=== PATIENT | male | born 1950 | race Caucasian/White ===

== ENCOUNTER 2021-10-13 00:19 | Day surgery (SDC) | payer MEDICARE, SELFPAY ==
[2021-09-08 10:57] VITALS: BMI 37.3
[2021-09-26 14:00] VITALS: BMI 37.3
--- NOTE | 2021-10-12 14:11 | WPDANESEPPF ---
Anes - Initial Pre Proc Eval Procedure: Operation Date: 10/13/21 09:30 Proposed Procedures p Screening Colonoscopy - Albert Hollins MD Date/Time: 10/12/21 14:11 Surgeon: Albert Hollins MD Pre Op Diagnosis: neoplasm screening Patient Data Age: 71 Gender: M Height: 1.91 m Weight: 135.4 kg Allergies Allergy/AdvReac Type Severity Reaction Status Date / Time No Known Allergies Allergy Verified 10/13/21 08:12 Home Medications Medication Instructions Recorded Confirmed Type allopurinol 300 mg tablet 300 mg PO DAILY 09/08/21 10/13/21 History dulaglutide 0.75 mg/0.5 mL 0 mg subcut WEEKLY 09/08/21 10/13/21 History subcutaneous pen injector (Trulicity) glimepiride 4 mg tablet 4 mg PO DAILY 09/08/21 10/13/21 History glipizide 10 mg tablet 10 mg PO DAILY 09/08/21 10/13/21 History insulin lispro 200 unit/mL (3 mL) 10 - 12 unit subcut BID 09/08/21 10/13/21 History subcutaneous pen (Humalog KwikPen U-200 Insulin) levothyroxine 50 mcg tablet 50 mcg PO DAILY 09/08/21 10/13/21 History lisinopril 40 mg tablet 40 mg PO DAILY 09/08/21 10/13/21 History metformin 500 mg tablet,extended 500 mg PO DAILY 09/08/21 10/13/21 History release 24 hr pravastatin 40 mg tablet 40 mg PO DAILY 09/08/21 10/13/21 History Patient hx anesthesia problems: none Family hx anesthesia problems: none Results Review: All pre-operative results and documents have been reviewed as part of the pre-operative evaluation. [facility] Past Medical History Medical History Diabetes type 2, controlled Gout Hyperlipidemia Hypertension Hypothyroidism Surgical History Surgical History History of cholecystectomy Social History Social History Smoking status: Former smoker Tobacco type: cigars Alcohol intake: never Substance use: never Substance use type: does not use Living arrangements: with family Spiritual care concerns: No Anes - Eval Final PreProcedure Day of Procedure 10/12/21 14:11 Patient weight: obese Heart: regular rate and rhythm Lungs: clear to auscultation Airway: Mallampati scale class II Neurological: alert and oriented Last oral intake: >/= 8 hours ASA classification: III Emergent: no Anesthetic plan: proceed Anesthesia type and monitoring: general GIVS and standard monitoring Results Review: All pre-operative results and documents have been reviewed as part of the pre-operative evaluation. Informed Consent: The patient's anesthetic plan and its attendant risks and benefits were discussed with the patient/family/POA. Questions were solicited and answers provided to the satisfaction of the patient/family/POA.
--- NOTE | 2021-10-13 06:41 | PM.HPGS ---
History of Present Illness History of Present Illness Consent: Risks, benefits, and alternatives have been discussed and questions answered. Patient agrees to proceed with procedure. Chief complaint: neoplasm screening Narrative: Oswaldo Zafar is a 71 year old male referred for colon cancer screening. His last colonoscopy was 10 years ago. Review of Systems Review of Systems: All systems reviewed & are unremarkable except as noted in HPI and below PMFSH Past Medical History Medical History Diabetes type 2, controlled Gout Hyperlipidemia Hypertension Hypothyroidism Surgical History Surgical History History of cholecystectomy Social History Social History Smoking status: Former smoker Tobacco type: cigars Alcohol intake: never Substance use: never Substance use type: does not use Living arrangements: with family Spiritual care concerns: No Meds Home Medications and Allergies Home Medications Medication Instructions Recorded Confirmed Type allopurinol 300 mg tablet 300 mg PO DAILY 09/08/21 10/13/21 History dulaglutide 0.75 mg/0.5 mL 0 mg subcut WEEKLY 09/08/21 10/13/21 History subcutaneous pen injector (Trulicity) glimepiride 4 mg tablet 4 mg PO DAILY 09/08/21 10/13/21 History glipizide 10 mg tablet 10 mg PO DAILY 09/08/21 10/13/21 History insulin lispro 200 unit/mL (3 mL) 10 - 12 unit subcut BID 09/08/21 10/13/21 History subcutaneous pen (Humalog KwikPen U-200 Insulin) levothyroxine 50 mcg tablet 50 mcg PO DAILY 09/08/21 10/13/21 History lisinopril 40 mg tablet 40 mg PO DAILY 09/08/21 10/13/21 History metformin 500 mg tablet,extended 500 mg PO DAILY 09/08/21 10/13/21 History release 24 hr pravastatin 40 mg tablet 40 mg PO DAILY 09/08/21 10/13/21 History Allergies Allergy/AdvReac Type Severity Reaction Status Date / Time No Known Allergies Allergy Verified 10/13/21 08:12 Exam Resp: Auscultation: clear to auscultation bilaterally Cardio: Rate: regular rate Rhythm: regular rhythm GI: GI Palp: Yes Soft to palpation and No Tenderness to palpation present (GI) Assessment and Plan Assessment and plan (1) Colon cancer screening: Code(s): Z12.11 - Encounter for screening for malignant neoplasm of colon Status: Acute Assessment and Plan: Colonoscopy with possible biopsy or polypectomy or cautery or injection of substances.
[2021-10-13 08:13] VITALS: BP 122/73; PULSE 89; RESP 18; TEMP 36.3; O2SAT 99
[2021-10-13] MEDS: LACTATED RINGERS 1,000 ML 150 ML IV CONT (08:25)
[2021-10-13 08:27] LABS: Glucose Point of Care 146 mg/dl (65-105)
[2021-10-13 09:48] VITALS: BP 86/50; PULSE 87; RESP 25; O2SAT 93
[2021-10-13 09:58] VITALS: BP 89/53; PULSE 86; RESP 19; O2SAT 92
[2021-10-13 10:08] VITALS: BP 102/63; PULSE 82; RESP 15; O2SAT 98
[2021-10-13 10:08] LABS: Glucose Point of Care 135 mg/dl (65-105)
== END 2021-10-13 10:19 | disposition home or self-care (01) ==
PROVIDERS: PCP Internal Medicine; Visit Provider Internal Medicine Gastroenterology
PROC: 0DJD8ZZ Inspection of Lower Intestinal Tract, Via Natural or Artificial Opening Endoscopic (ICD-10-PCS; CPT 45378; principal; 2021-10-13 09:30)
DX: Z12.11 Encounter for screening for malignant neoplasm of colon (principal); K63.5 Polyp of colon; E11.9 Type 2 diabetes mellitus without complications; E78.5 Hyperlipidemia, unspecified; I10 Essential (primary) hypertension; E03.9 Hypothyroidism, unspecified; Z87.891 Personal history of nicotine dependence; Z79.84 Long term (current) use of oral hypoglycemic drugs; Z79.4 Long term (current) use of insulin; Z90.49 Acquired absence of other specified parts of digestive tract; M10.9 Gout, unspecified; E66.9 Obesity, unspecified; Z68.36 Body mass index [BMI] 36.0-36.9, adult
CPT/HCPCS: 45380; 82948; 88305; J2704; J7120

== ENCOUNTER 2024-01-23 23:58 | Emergency (ER) | payer MEDICARE, SELFPAY ==
--- NOTE | ~2024-01-23 | CT_ITS ---
CT of the Abdomen and Pelvis: Indication: Abdominal pain Technique: 2.5 mm axial scans were obtained through the abdomen and pelvis following intravenous adm inistration of 100 cc of Omnipaque 350. Dose reduction technique was used on this scan by utilizing a utomated exposure control and iterative reconstruction technique. The dose-length product (DLP) was 1 698.48 mGy-cm. Findings: Scans through the lung bases are unremarkable. The liver, spleen, pancreas, adrenals and kidneys are within normal limits. Cholecystectomy clips not ed.. There are mild atherosclerotic calcifications of the aorta. No lymphadenopathy. There is wall thickening with adjacent pericolic inflammatory change at the proximal sigmoid colon, c ompatible diverticulum, most compatible with acute diverticulitis. No abscess or free air. No bowel o bstruction. Duodenal diverticulum noted. Images through the pelvis were performed. Small urinary bladder diverticula present, most notably at the right side. Prostate gland mildly enlarged. Small fat-containing left inguinal hernia present. No ascites. Impression: Acute diverticulitis, as detailed above. No abscess or free air. Small fat-containing left inguinal hernia. Additional chronic findings, as above. Reviewed, dictated and finalized at location M. Impression: Acute diverticulitis, as detailed above. No abscess or free air. Small fat-containing left inguinal hernia. Additional chronic findings, as above.
[2024-01-24 00:01] VITALS: BP 132/62; PULSE 90; RESP 15; TEMP 36.2; O2SAT 100
[2024-01-24 00:15] LABS: Basophils Absolute Auto 0.1 K/mm3 (0.0-0.1); Basophils Percent Auto 0.6 % (0.2-1.2); Eosinophils Absolute Auto 0.2 K/mm3 (0-0.3); Eosinophils Percent Auto 2.7 % (0-4.4); Hemoglobin 14.7 g/dL (14.0-18.0); Immature Granulocyte Absolute 0.02 K/mm3 (0.00-0.031); Immature Granulocyte Percent A 0.3 % (0-0.5); Lymphocytes Absolute Auto 1.29 K/mm3 (0.9-3.2); Lymphocytes Percent Auto 16.7 % (18.3-44.2); Mean Corpuscular HGB Conc 34.2 g/dl (32-36); Mean Corpuscular Hemoglobin 30.8 pg (26-34); Mean Platelet Volume 11.1 fl (7.4-10.4); Monocytes Absolute Auto 0.6 K/mm3 (0.1-0.6); Monocytes Percent Auto 8.2 % (2.6-8.5); Neutrophils Absolute Auto 5.5 K/mm3 (1.3-6.7); Neutrophils Percent Auto 71.5 % (45.5-73.1); Platelet Count Result 176 k/mm3 (150-375); Red Blood Count 4.78 M/mm3 (4.6-6.20); Red Cell Distribution Width 14.8 % (11.5-14.5); White Blood Count 7.7 K/mm3 (4.5-10.0)
[2024-01-24 00:24] LABS: Alanine Aminotransferase 16 U/L (6-50); Albumin Level 4.3 g/dL (3.5-5.1); Alkaline Phosphatase 64 U/L (38-126); Anion Gap 10 mmol/L (4-12); Aspartate Amino Transferase 23 U/L (17-59); Bilirubin,Total 0.5 mg/dL (0.2-1.3); Blood Urea Nitrogen 16 mg/dL (9-20); Calcium 9.4 mg/dL (8.4-10.2); Carbon Dioxide 22 mmol/L (22-30); Chloride 103 mmol/L (98-107); Estimated CRCL calculation 122 ml/min; Estimated Glomerular Filt Rate > 60; Glucose 91 mg/dL (65-110); Lipase 41 U/L (23-300); Potassium 4.7 mmol/L (3.4-5.0); Sodium 135 mmol/L (137-145)
[2024-01-24 01:06] LABS: Add Urine Microscopic? NO; Appearance Urine Clear (Clear); Bilirubin Urine Negative (Negative); Blood Urine Negative (Negative); Color Urine Yellow (Yellow); Glucose Urine UA Negative (Negative); Ketones Urine Negative (Negative); Leukocyte Esterase Ur Negative LEU/UL (Negative); Nitrate Urine Negative (Negative); Protein Urine Negative (Negative); Specific Grav Ur 1.012 (1.001-1.035); pH Urine 5.5 (5.0-9.0)
[2024-01-24 01:08] VITALS: BP 126/72; PULSE 90; RESP 19; TEMP 37; O2SAT 95
--- NOTE | 2024-01-24 01:11 | ED.ABDPAIN ---
HPI - Abdominal Pain General Chief Complaint: Abdominal Pain <Melissa Julio PA-C - Last Filed: 01/24/24 02:54> Stated Complaint: abdomen pain <Melissa Julio PA-C - Last Filed: 01/24/24 02:54> Time Seen by Provider: 01/24/24 01:06 <Melissa Julio PA-C - Last Filed: 01/24/24 02:54> History of Present Illness HPI narrative: 73-year-old male with history of hyperlipidemia, hypertension, insulin-dependent type 2 diabetes, hypothyroidism presents to the ED with his at bedside for left lower quadrant abdominal pain that started at 5:00 p.m. yesterday. Patient states the pain is sharp in nature and constant. States it is better when he sits but cannot identify any aggravating factors. Last bowel of it was today and normal. States he has had some intermittent diarrhea but that is not abnormal for him. He reports a history of a umbilical hernia repair and cholecystectomy. Denies obstipation, nausea or vomiting, dysuria or hematuria, history of kidney stones, flank pain. Denies history of diverticulitis. <Melissa Julio PA-C - Last Filed: 01/24/24 02:54> Related Data Home Medications: Home Medications Medication Instructions Recorded Confirmed allopurinol 300 mg tablet 300 mg PO DAILY 09/08/21 10/13/21 dulaglutide 0.75 mg/0.5 mL 0 mg subcut WEEKLY 09/08/21 10/13/21 subcutaneous pen injector (Trulicity) glimepiride 4 mg tablet 4 mg PO DAILY 09/08/21 10/13/21 glipizide 10 mg tablet 10 mg PO DAILY 09/08/21 10/13/21 insulin lispro 200 unit/mL (3 mL) 10 - 12 unit subcut BID 09/08/21 10/13/21 subcutaneous pen (Humalog KwikPen U-200 Insulin) levothyroxine 50 mcg tablet 50 mcg PO DAILY 09/08/21 10/13/21 lisinopril 40 mg tablet 40 mg PO DAILY 09/08/21 10/13/21 metformin 500 mg tablet,extended 500 mg PO DAILY 09/08/21 10/13/21 release 24 hr pravastatin 40 mg tablet 40 mg PO DAILY 09/08/21 10/13/21 <Melissa Julio PA-C - Last Filed: 01/24/24 02:54> Allergies/Adverse Reactions: Allergies Allergy/AdvReac Type Severity Reaction Status Date / Time No Known Allergies Allergy Verified 10/13/21 08:12 <Melissa Julio PA-C - Last Filed: 01/24/24 02:54> Review of Systems Review of Systems: All systems reviewed & are unremarkable except as noted in HPI and below <Melissa Julio PA-C - Last Filed: 01/24/24 02:54> PMFSH Past Medical History Medical History: Medical History Diabetes type 2, controlled Gout Hyperlipidemia Hypertension Hypothyroidism <Melissa Julio PA-C - Last Filed: 01/24/24 02:54> Surgical History Surgical History: Surgical History History of cholecystectomy <Melissa Julio PA-C - Last Filed: 01/24/24 02:54> Social History Social History: Social History Smoking status: Former smoker Tobacco type: cigars Alcohol intake: never Substance use: never Substance use type: does not use Living arrangements: with family Spiritual care concerns: No <Melissa Julio PA-C - Last Filed: 01/24/24 02:54> Exam Narrative: GENERAL: Well-appearing, well-nourished, and in no acute distress. HEAD: Normocephalic, atraumatic. EYES: EOMI. ENT: Nares clear, no rhinorrhea or epistaxis. Mucous membranes moist. NECK: Supple. CHEST: Clear to auscultation. No respiratory distress. HEART: Regular rate and rhythm. No murmur heard. Normal peripheral pulses. ABDOMEN: Normoactive bowel sounds. Abdomen soft with tenderness in the suprapubic and left lower quadrant. No rebound, guarding or rigidity. No CVA tenderness. EXTREMITIES: Normal range of motion. No edema. SKIN: Warm, dry, no rash. NEURO: No focal deficits. 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
[2024-01-24 02:34] VITALS: BP 120/75; PULSE 85; RESP 16; TEMP 36.6; O2SAT 98
[2024-01-24] MEDS: MORPHINE SULFATE (*CRX) 4 MG/ML INJ IV PUSH (03:33)
[2024-01-24] MEDS: DEXTROSE 50% 25 GM/50 ML SYRINGE IV PUSH (04:02)
[2024-01-24] MEDS: SODIUM CHLORIDE 0.9% IV 1,000 ML 999 ML IV CONT (04:09)
[2024-01-24 04:10] VITALS: BP 78/55; PULSE 69; RESP 16; TEMP 36.4; O2SAT 92
--- NOTE | 2024-01-24 04:15 | PC.NURSE ---
Patient checked his blood glucose on his personal glucometer. Patient obtained a reading of 70. Notified EDP Dr[address] Parsons
[2024-01-24 04:23] LABS: Glucose Point of Care 123 mg/dl (65-105)
[2024-01-24 04:27] VITALS: BP 102/06; BP 102/60; PULSE 77; PULSE 78; RESP 16; TEMP 36.6; O2SAT 98
[2024-01-24 05:51] VITALS: BP 114/65; PULSE 73; RESP 15; TEMP 36.6; O2SAT 97
[2024-01-24] MEDS: ONDANSETRON INJ 4 MG/2 ML VIAL IV PUSH (05:59)
[2024-01-24] MEDS: CIPROFLOXACIN 500 MG TAB PO (06:00)
[2024-01-24] MEDS: metroNIDAZOLE 500 MG TABLET PO (06:00)
== END 2024-01-24 06:04 | disposition home or self-care (01) ==
PROVIDERS: Emergency Medicine; Emergency Provider Physician Assistant; PCP Internal Medicine
DX: K57.32 Diverticulitis of large intestine without perforation or abscess without bleeding (principal); I10 Essential (primary) hypertension; E78.5 Hyperlipidemia, unspecified; E11.9 Type 2 diabetes mellitus without complications; E03.9 Hypothyroidism, unspecified; M10.9 Gout, unspecified; Z87.891 Personal history of nicotine dependence; Z90.49 Acquired absence of other specified parts of digestive tract; Z79.4 Long term (current) use of insulin; Z79.85 Long-term (current) use of injectable non-insulin antidiabetic drugs; Z79.899 Other long term (current) drug therapy; Z79.84 Long term (current) use of oral hypoglycemic drugs; K40.90 Unilateral inguinal hernia, without obstruction or gangrene, not specified as recurrent
CPT/HCPCS: 36415; 74177; 80053; 81003; 82948; 83690; 85025; 96361; 96374; 96375; 99284; A9270; J2270; J2405; J7030; Q9967

== ENCOUNTER 2024-11-23 08:54 | Emergency (ER) | payer MEDICARE, SELFPAY ==
--- NOTE | ~2024-11-23 | CT_ITS ---
EXAMINATION: CT abdomen pelvis w con DATE: 11/23/2024 10:23 INDICATION: Lower abdominal pain. TECHNIQUE: Computed tomography (CT) of the abdomen and pelvis was performed with 100 mL Omnipaque-350 intravenous contrast. Automated exposure control and iterative reconstruction technique were employe d. The dose-length product was 1686.87 mGy-cm. COMPARISON: 01/24/2024 FINDINGS: Lung bases are clear. Heart size is normal. Atherosclerotic coronary artery calcific lesions. No rojas cardial or pleural effusion. Cholecystectomy clips the gallbladder fossa. There are couple unchanged subtle hypodense lesions posteriorly in the right hepatic lobe, the larger measuring 1.5 cm maximal d iameter. Spleen and bilateral adrenal glands are normal. Small bilateral renal cysts measuring up to 1.5 similar to lower pole the left kidney. Mild fatty atrophy pancreas with multiple scattered dystro phic calcifications consistent with sequela of chronic pancreatitis. Air-fluid level within a 4.7 x 3 .1 x 2.9 cm duodenal diverticulum along the medial margin of the second portion of the duodenum. The more distal bowels including the appendix are normal. There are couple small bladder diverticula courtney uring up to 2.7 cm in maximal diameter which could relate chronic mild obstruction from the enlarged prostate which measures 5.2 x 4.5 cm. No free intraperitoneal gas or fluid. No pathologically enlarge d abdominal or pelvic lymphadenopathy. Small fat-containing left inguinal hernia. Mild lumbar and mod erate thoracic spondylosis with chronic appearing mild anterior wedging of a few lower thoracic verte bral bodies.. IMPRESSION: 1. No acute intra-abdominal/pelvic process. Specifically the appendix is normal. 2. Multiple dystrophic parenchymal calcifications in the pancreas consistent with sequela of chronic pancreatitis.. 3. A couple bladder diverticula likely related to chronic outlet obstruction from the enlarged prosta te. 4. Small fat-containing left inguinal hernia. Reviewed, dictated and finalized at location A. IMPRESSION: 1. No acute intra-abdominal/pelvic process. Specifically the appendix is normal . 2. Multiple dystrophic parenchymal calcifications in the pancreas consistent wi th sequela of chronic pancreatitis.. 3. A couple bladder diverticula likely related to chronic outlet obstruction fr om the enlarged prostate. 4. Small fat-containing left inguinal hernia.
--- OUTSIDE RECORDS SUMMARY | 2024-11-23 08:56 | XMS_ITS | Referral Summary ---
Author Organization [facility] Address [address] [place] [address] Care Team Providers Care Superintendent Transportation Name Role Phone Elvis Rojas MD Primary Care Provider Allergies Active Allergy Reactions Criticality Noted Date Comments Meperidine Other (See comments) Low Medications allopurinol (ZYLOPRIM) 300 mg tablet take 1 tablet (300MG) by oral route bid 0 05/10/19 11 Active lancets (ONETOUCH DELICA LANCETS) 30 gauge misc test blood sugars two- three times every day 300 each 2 06/08/19 17 Active lisinopril (PRINIVIL,ZESTRIL) 40 mg tablet Take one by mouth one time per day 0 0 04/27/19 09 Active colchicine (COLCRYS) 0.6 mg tablet Take two by mouth two times per day 0 0 10/30/19 07 Active triamcinolone (NASACORT AQ) 55 mcg nasal inhaler Two sprays in each nostil one time per day 0 0 10/30/19 07 Active ONETOUCH ULTRASOFT lancetsIndications :Type 2 diabetes mellitus with hyperglycemia, with long-term current use of insulin (HCC) Test blood sugars two to three times every day 300 each 1 12/01/19 17 Active pravastatin (PRAVACHOL) 40 mg tablet 09/14/19 18 Active BinaxNOW COVID-19 Ag Self Test kit 04/10/20 22 Active finasteride (PROSCAR) 5 mg tablet 11/28/19 23 Active triamcinolone (KENALOG) 0.1 % ointment APPLY THIN LAYER TOPICALLY TO THE AFFECTED AREA TWICE DAILY 12/12/19 23 Active Trulicity 3 mg/0.5 mL pen injector INJECT THE CONTENTS OF ONE PEN SUBCUTANEOUSLY WEEKLY DIRECTED 6 mL 3 12/17/19 24 Active clobetasoL (TEMOVATE) 0.05 % cream 02/04/20 24 Active HYDROcodone-acetam inophen (NORCO) 5-325 mg per tablet TAKE 1 TABLET BY MOUTH EVERY 6 HOURS FOR 3 DAYS NEEDED FOR PAIN 01/24/20 24 Active metoprolol tartrate (LOPRESSOR) 25 mg immediate release tablet 12/21/19 24 Active ondansetron ODT (ZOFRAN-ODT) 4 mg disintegrating tablet DISSOLVE 1 TABLET ON THE TONGUE EVERY 8 HOURS NEEDED FOR NAUSEA OR VOMITING 01/24/20 24 Active tamsulosin (FLOMAX) 0.4 mg extended release capsule 01/02/20 24 Active TOUJEO 300 unit/mL (1.5 mL) pen for injectionIndicatio ns:Type 2 diabetes mellitus with hyperglycemia, with long-term current use of insulin ([facility]) INJECT 60 UNITS SUBCUTANEOUSLY EVERY NIGHT 18 mL 3 03/24/20 24 Active levothyroxine (SYNTHROID) 50 mcg tablet 1 tab po M-F, 2 tabs on the weekends 110 tablet 3 07/24/19 25 Active metFORMIN XR (GLUCOPHAGE XR) 500 mg 24 hr tabletIndications: Type 2 diabetes mellitus with hyperglycemia, with long-term current use of insulin ([facility]) TAKE 2 TABLETS BY MOUTH TWICE DAILY 360 tablet 3 08/14/19 25 Active OneTouch Ultra Test stripIndications:T ype 2 diabetes mellitus with hyperglycemia, with long-term current use of insulin ([facility]),Hypertension , unspecified type USE WITH METER TO TEST BLOOD SUGAR 4 TIMES DAILY 400 strip 3 08/26/19 25 Active alcohol swabs (Alcohol Prep Pads) pads, medicatedIndicatio ns:Type 2 diabetes mellitus with hyperglycemia, with long-term current use of insulin ([facility]) USE TOPICALLY UP TO 8 TIMES DAILY 800 each 1 09/13/19 25 Active pen needle, diabetic (BD Ultra-Fine Mini Pen Needle) 31 gauge x 3/16 needleIndications: Type 2 diabetes mellitus with hyperglycemia, with long-term current use of insulin ([facility]) USE 3 TIMES DAILY 270 each 3 10/23/19 25 Active HumaLOG 200 unit/mL (3 mL) pen for injection INJECT SUBCUTANEOUSLY 12 TO 15 UNITS BEFORE BREAKFAST AND DINNER TOTAL DAILY DOSE IS 30 UNITS 18 mL 3 10/23/19 25 Active Active Problems Problem Noted Date Diagnosed Date Hypothyroidism 02/06/2024 Assessment & Plan (02/06/2024 9:08 AM CDT): Chronic problem; unknown status. Clinically euthyroid. Currently taking levothyroxine 50mcg daily. Aware to take 1st thing in morning, 30-60 minutes before food/drink/other medications. Will update labs today. Does not mychart. Verified phone #/address to contact re: results. Cubital tunnel syndrome on left 04/28/2019 Carpal tunnel syndrome, bilateral 04/28/2019 Hyperlipidemia associated with type 2 diabetes jack mcmullen 12/04/2017 Assessment & Plan (02/06/2024 9:05 AM CDT): Chronic problem. Currently controlled on Pravastatin 40mg. Last lipid panel: 06/09/22 LDL=46, VX=317. Will update labs today. Does not mychart. Verified phone #/address to contact re: results. Assessment & Plan (01/02/2023 9:16 AM CDT): Chronic problem. Currently controlled on Pravastatin 40mg. Last lipid panel: 06/09/22 LDL=46, GN=182. Assessment & Plan (06/22/2022 11:40 AM FURNITURE FINISHER HELPER): Chronic, well controlled Low fat Low cholesterol diet Exercise Continue statin therapy with Pravastatin Assessment & Plan (12/20/2021 12:45 PM CDT): Chronic, well controlled Low fat Low cholesterol diet Exercise Continue statin therapy Get report of lipid profile done recently Assessment & Plan (06/09/2021 1:41 PM FURNITURE FINISHER HELPER): Chronic problem. On statin therapy, no changes. Assessment & Plan (06/15/2020 12:47 PM FURNITURE FINISHER HELPER): Goal of treatment , LDL cholesterol less than 100 ( less than 70 in patients with history of heart attacks and / or strokes ) NonHDL cholesterol ( total cholesterol minus HDL cholesterol ) goal less than 130 ( less than 100 in patients with history of heart attacks and / or strokes ) Low cholesterol, low fat diet was discussed and advised. Daily exercise On statin therapy with Pravachol Assessment & Plan (12/16/2019 4:28 PM CDT): Goal of treatment , LDL cholesterol less than 100 ( less than 70 in patients with history of heart attacks and / or strokes ) NonHDL cholesterol ( total cholesterol minus HDL cholesterol ) goal less than 130 ( less than 100 in patients with history of heart attacks and / or strokes ) Low cholesterol, low fat diet was discussed and advised. Daily exercise On statin therapy Assessment & Plan (07/22/2019 3:26 PM CDT): Goal of treatment , LDL cholesterol less than 100 ( less than 70 in patients with history of heart attacks and / or strokes ) NonHDL cholesterol ( total cholesterol minus HDL cholesterol ) goal less than 130 ( less than 100 in patients with history of heart attacks and / or strokes ) Low cholesterol, low fat diet was discussed and advised. Daily exercise On statin therapy with Pravachol Assessment & Plan (01/14/2019 3:21 PM CDT): Goal of treatment , LDL cholesterol less than 100 ( less than 70 in patients with history of heart attacks and / or strokes ) NonHDL cholesterol ( total cholesterol minus HDL cholesterol ) goal less than 130 ( less than 100 in patients with history of heart attacks and / or strokes ) Low cholesterol, low fat diet was discussed and advised. Daily exercise On statin therapy Assessment & Plan (07/09/2018 3:12 PM CDT): Goal of treatment , LDL cholesterol less than 100 ( less than 70 in patients with history of heart attacks and / or strokes ) NonHDL cholesterol ( total cholesterol minus HDL cholesterol ) goal less than 130 ( less than 100 in patients with history of heart attacks and / or strokes ) Low cholesterol, low fat diet was discussed and advised. Daily exercise On statin therapy Lipids checked today Assessment & Plan (12/04/2017 4:05 PM CDT): Goal of treatment , LDL cholesterol less than 100 ( less than 70 in patients with history of heart attacks and / or strokes ) NonHDL cholesterol ( total cholesterol minus HDL cholesterol ) goal less than 130 ( less than 100 in patients with history of heart attacks and / or strokes ) Low cholesterol, low fat diet was discussed and advised. Daily exercise On statin therapy Diabetic peripheral neuropat hy associated with type 2 diabetes mellitus 05/29/2017 Assessment & Plan (02/06/2024 9:05 AM CDT): Chronic problem. Aware to check feet & to not go barefoot. Assessment & Plan (01/02/2023 9:33 AM CDT): Chronic problem. Aware to check feet & to not go barefoot. Assessment & Plan (12/23/2020 11:20 AM CDT): Foot care discussed Diabetic foot forms completed Assessment & Plan (01/14/2019 3:19 PM CDT): Foot care discussed For for diabetic shoe inserts signed. Assessment & Plan (12/04/2017 4:06 PM CDT): Foot care discussed Assessment & Plan (05/29/2017 3:31 PM FURNITURE FINISHER HELPER): Foot care discussed. Hypertension associated with diabetes 02/25/2013 Overview (07/29/2016): HYPERTENSION NOS Assessment & Plan (02/06/2024 9:05 AM CDT): Chronic problem controlled on lisinopril 40mg daily Will update labs today. Does not mychart. Verified phone #/address to contact re: results. Assessment & Plan (01/02/2023 9:17 AM CDT): Chronic problem controlled on lisinopril 40mg daily Assessment & Plan (06/22/2022 11:39 AM FURNITURE FINISHER HELPER): Chronic, well controlled Importance of low salt diet and exercise were discussed Continue current meds including Lisinopril Assessment & Plan (12/20/2021 12:44 PM CDT): Chronic, well controlled Importance of low salt diet and exercise were discussed Continue current meds will get reports of labs done with Dr. Bob leiva Assessment & Plan (06/09/2021 1:41 PM FURNITURE FINISHER HELPER): Controlled on current medications, no changes. Assessment & Plan (12/23/2020 11:19 AM CDT): Goal blood pressure is less than 140/85 Low salt diet was discussed andd recommended The importance of daily aerobic exercise was also emphasized. Continue current meds, including SERENA-I or ARB, e.g. Check microalbumin Assessment & Plan (06/15/2020 12:46 PM FURNITURE FINISHER HELPER): Goal blood pressure is less than 140/85 Low salt diet was discussed andd recommended The importance of daily aerobic exercise was also emphasized. Continue current meds, including SERENA-I or ARB, e.g. Lisinopril Check microalbumin Assessment & Plan (12/16/2019 4:28 PM CDT): Goal blood pressure is less than 140/85 Low salt diet was discussed andd recommended The importance of daily aerobic exercise was also emphasized. Continue current meds, including SERENA-I or ARB, e.g. with Lisinopril Assessment & Plan (07/22/2019 3:27 PM CDT): Goal blood pressure is less than 140/85 Low salt diet recommended Daily aerobic exercise Continue current meds, including SERENA-I or ARB Assessment & Plan (01/14/2019 3:20 PM CDT): Goal blood pressure is less than 140/85 Low salt diet recommended Daily aerobic exercise Continue current meds, including SERENA-I or ARB Assessment & Plan (07/09/2018 3:12 PM CDT): Goal blood pressure is less than 140/85 Low salt diet recommended Daily aerobic exercise Continue current meds, including SERENA-I or ARB Assessment & Plan (12/04/2017 4:05 PM CDT): Goal blood pressure is less than 140/85 Low salt diet recommended Daily aerobic exercise Continue current meds, including SERENA-I or ARB Assessment & Plan (05/29/2017 3:37 PM FURNITURE FINISHER HELPER): Goal blood pressure is less than 140/85 Low salt diet recommended Daily aerobic exercise Continue current meds, including SERENA-I or ARB Assessment & Plan (11/28/2016 3:17 PM CDT): Goal blood pressure is less than 140/85 Low salt diet recommended Daily aerobic exercise Continue current meds, including SERENA-I or ARB Type 2 diabetes mellitus wit h hyperglycemia, with long-term current use of insulin 01/06/2008 Overview (07/26/2016): DMII WO CMP NT ST UNCNTR Assessment & Plan (02/06/2024 9:34 AM CDT): Chronic problem. A1c stable at 6.9% (was 6.7% 01/02/23). Current medications: Metformin 1000mg twice daily Trulicity 3 mg weekly Toujeo varies by intake 10-60 units nightly Humalog 12 units before breakfast & dinner DM eye exam spring 2023 at [facility]. Letter sent to get copy of report. Will update labs today. Does not mychart. Verified phone #/address to contact re: results. Strive for regular exercise (30min most days) and diet (get at least 4-5 servings of fruit and veggies daily, avoid processed foods, increase lean protein intake and decrease carb portions as well as fruit juices, regular soda & desserts). Watch carbs and simple sugars. Check the blood sugar 2-3x/day. Check the feet daily for skin breakdown and infection. Assessment & Plan (01/02/2023 9:31 AM CDT): Chronic problem. A1c stable at 6.7% (was 6.9% 06/2022). Current medications: Metformin 1000mg twice daily Trulicity 3 mg weekly Toujeo varies by intake 10-60 units nightly Humalog 8-15 units before breakfast & dinner. UTD on DM eye exam. Will update MA/Cr today. Will update labs today. Does not mychart. Verified phone #/address to contact re: results. Strive for regular exercise (30min most days) and diet (get at least 4-5 servings of fruit and veggies daily, avoid processed foods, increase lean protein intake and decrease carb portions as well as fruit juices, regular soda & desserts). Watch carbs and simple sugars. Check the blood sugar 2-3x/day. Check the feet daily for skin breakdown and infection. Assessment & Plan (06/22/2022 11:39 AM FURNITURE FINISHER HELPER): Hba1c was Lab Results Component Value Date HGBA1C 6.9 06/22/2022 today, indicating adequate DM control Goal Hba1c and blood glucose explained Diet and exercise were advised Prevention and treatment of hyypoglcyemia were discussed with the patient Blood glucose monitoring : 2-3 x day . Patient is not interested in CGM Adjustment to medications: Continue current Rx for Bydureon sent Will resume Trulicity once it is available Assessment & Plan (12/20/2021 12:44 PM CDT): Hba1c was Lab Results Component Value Date HGBA1C 6.8 12/20/2021 today, indicating adequate DM control Goal Hba1c and blood glucose explained Diet and exercise were advised Prevention and treatment of hyypoglcyemia were discussed with the patient Blood glucose monitoring : 3-4 x day ( pt declines CGM ) Adjustment to medications: Switch back from Glucotrol to glimepiride, since the patient feels that it works better for him and he thinks he can pay prasad mitchell also advised the patient on taking a few less units of Humalog in the morning, when he is going to be more active Assessment & Plan (06/09/2021 1:56 PM FURNITURE FINISHER HELPER): Chronic problem, A1c stable but some variability in readings. Change glimepiride to glipizide for insurance. Start at 10 mg 1/2 tab daily and monitor CBGs, if >180 aD increase to 1 whole tablet. Lower HL at meals to 10 units. Monitor PPG since increasing trulicity, discussed how to lower further if needed. Call if any issues. Assessment & Plan (12/23/2020 11:19 AM CDT): Hba1c was Lab Results Component Value Date HGBA1C 7.1 06/15/2020 today, indicating suboptimal DM control Goal blood sugars in the 120-150 range , with Hb1c under 7.0 % was explained 1800 calorie, consistent carb diet recommended. No more than 30-45 grams of carbs per meal recommended, as well as avoiding high concentrated sweet drinks . 25-45 min daily exercise, combining both aerobic and resistance exercise recommended. The need to monitor blood glucose before meals and bedtime was discussed. Prevention and treatment of hyypoglcyemia discussed. Increase Trulicity to 3 mg weekly Assessment & Plan (06/15/2020 12:47 PM FURNITURE FINISHER HELPER): Hba1c was Lab Results Component Value Date HGBA1C 7.1 06/15/2020 today, indicating Suboptimal DM control Goal blood sugars in the 120-150 range , with Hb1c under 7.0 % was explained 1800 calorie, consistent carb diet recommended. No more than 30-45 grams of carbs per meal recommended, as well as avoiding high concentrated sweet drinks . 25-45 min daily exercise, combining both aerobic and resistance exercise recommended. The need to monitor blood glucose before meals and bedtime was discussed. Prevention and treatment of hyypoglcyemia discussed. Continue current regimen Assessment & Plan (12/16/2019 4:27 PM CDT): Hba1c was Lab Results Component Value Date HGBA1C 7.2 07/09/2018 today, indicating adequate DM control 1800 calorie, consistent carb diet recommended. No more than 30-45 grams of carbs per meal recommended, as well as avoiding high concentrated sweet drinks . 25-45 min daily exercise, combining both aerobic and resistance exercise recommended. The need to monitor blood glucose before meals and bedtime was discussed. Prevention and treatment of hyypoglcyemia discussed. Insulin dose: Continue current insulin and orals Assessment & Plan (07/22/2019 3:26 PM CDT): Last Hba1c was Lab Results Component Value Date HGBA1C 7.2 07/09/2018 Indicating adequate DM control 1800 calorie, consistent carb diet recommended. No more than 30-45 grams of carbs per meal recommended, as well as avoiding high concentrated sweet drinks . 25-45 min daily exercise, combining both aerobic and resistance exercise recommended. The need to monitor blood glucose before meals and bedtime was discussed. Prevention and treatment of hyypoglcyemia discussed. Insulin dose: Continue current regimen Assessment & Plan (01/14/2019 3:20 PM CDT): Hba1c was Lab Results Component Value Date HGBA1C 7.2 07/09/2018 today, indicating Adequate DM control 1800 calorie, consistent carb diet recommended. No more than 30-45 grams of carbs per meal recommended, as well as avoiding high concentrated sweet drinks . 25-45 min daily exercise, combining both aerobic and resistance exercise recommended. The need to monitor blood glucose before meals and bedtime was discussed. Prevention and treatment of hyypoglcyemia discussed. Insulin dose: continue current regimen Assessment & Plan (07/09/2018 3:11 PM CDT): Hba1c was Lab Results Component Value Date HGBA1C 7.2 07/09/2018 today, indicating Adequate DM control 1800 calorie, consistent carb diet recommended 25-45 min daily exercise, combining both aerobic and resistance exercise recommended. The need to monitor blood glucose before meals and bedtime was discussed. Prevention and treatment of hyypoglcyemia discussed. Assessment & Plan (12/04/2017 4:05 PM CDT): Hba1c was Lab Results Component Value Date HGBA1C 7.4 05/29/2017 today, indicating ... DM control 1800 calorie, consistent carb diet recommended 30 min daily exercise, combining both aerobic and resistance exercise is strongly recommended and needed as part of diabetes management plan. The need to monitor blood glucose before meals and bedtime was discussed. Take prandial insulin before meals based on carb intake and blood glucose readings. Prevention and treatment of hyypoglcyemia discussed. Assessment & Plan (05/29/2017 3:31 PM FURNITURE FINISHER HELPER): Hba1c was 7.4 today, indicating sub-optimal DM control 1800 calorie, consistent carb diet recommended 30 min daily exercise, combining both aerobic and resistance exercise is strongly recommended and needed as part of diabetes management plan. The need to monitor blood glucose before meals and bedtime was discussed. Take prandial insulin before meals based on carb intake and blood glucose readings. Prevention and treatment of hyypoglcyemia discussed. Assessment & Plan (11/28/2016 3:33 PM CDT): Hba1c was 7.2 today, indicating adequate DM control 1800 calorie, consistent carb diet recommended 30 min daily aerobic and resistance exercise recommended Foot care discused. Prevention and treatment of hyypoglcyemia discussed. Resolved Problems Problem Noted Date Diagnosed Date Resolved Date Pure hypercholesterolemia 02/25/2013 Overview (07/29/2016): PURE HYPERCHOLESTEROLEM Assessment & Plan (05/29/2017 3:38 PM FURNITURE FINISHER HELPER): Goal of treatment , LDL cholesterol less than 100 ( less than 70 in patients with history of heart attacks and / or strokes ) NonHDL cholesterol goal less than 130 ( less than 100 in patients with history of heart attacks and / or strokes ) Continue statin therapy Assessment & Plan (11/28/2016 3:15 PM CDT): Goal of treatment , LDL cholesterol less than 100 ( less than 70 in patients with history of heart attacks and / or strokes ) NonHDL cholesterol goal less than 130 / 100 Lipids at goal. Continue statin therapy Low cholesterol diet, exercise advised. Social History Tobacco Use Types Packs/Day Years Used Date Smoking Tobacco: Former Smokeless Tobacco: Never Alcohol Use Standard Drinks/Week Comments Yes 0 (1 standard drink = 0.6 oz pur e alcohol) PHQ-2 Answer Date Recorded PHQ-2 Total Score (If total score is 3 or more points, staff should administer the PHQ-9) 0 12/20/2021 Sex and Gender Information Value Date Recorded Sex Assigned at Not on file Legal Sex Male 11:59 PM FURNITURE FINISHER HELPER Gender Identity Not on file Sexual Orientation Not on file Last Filed Vital Signs Vital Sign Reading Time Taken Comments Blood Pressure 126/70 07/23/2024 10:48 AM CDT Pulse 80 07/23/2024 10:48 AM CDT Temperature - - Respiratory Rate 16 07/23/2024 10:4 8 AM CDT Oxygen Saturation - - Inhaled Oxygen Concentration - - Weight 135.8 kg (299 lb 4.8 oz) 025 10:48 AM CDT Height 190.5 cm (6' 3) 07/23/2024 10:4 8 AM CDT Body Mass Index 37.41 07/23/2024 10:48 AM CDT Plan of Treatment Not on file Procedures Procedure Name Priority Date/Time Associated Diagnosis Comments ALBUMIN CREATININE RATIO, URINE Routine 07/23/2024 11:07 AM CDT Hypertension associated with diabetes (HCC) POCT HEMOGLOBIN A1C Routine 07/23/2024 1 0:50 AM CDT Type 2 diabetes mellitus with hyperglycemia, with long-term current use of insulin (HCC) LIPID PANEL Routine 05/28/2024 8:35 AM FURNITURE FINISHER HELPER COMPREHENSIVE METABOLIC PANEL Routine 05/28/2024 8:35 AM FURNITURE FINISHER HELPER HM DIABETES EYE EXAM Routine 01/10/2024 12:05 PM CDT PSA, TOTAL Routine 06/10/2019 from Last 3 Months or Most Recently Relevant to Health Maintenance Results * Albumin Creatinine Ratio, Urine (07/23/2024 11:07 AM CDT) Albumin Ur <12.0 mg/L Comment: Interpretive Data No reference range established. Current interpretive data was last revised 2018. Creatinine Ur 63.1 mg/dL KAUSHIK CAMPOS Comment: Interpretive Data No reference range established. Current interpretive data was last revised 2018. Albumin Creatinine Ratio, Ur <19 1 - 29 mg/g KAUSHIK CAMPOS Urine 07/23/2024 11:0 7 AM CDT 07/23/2024 9:37 PM CDT us Reed Coles MD LAB URINE ORDERABLES Final Resul t KAUSHIK CAMPOS [id number] Department [place] [address] * (ABNORMAL) POCT hemoglobin A1c (07/23/2024 10:50 AM CDT) Pathologist [facility] [place] Hemoglobin A1C, POC 6.4 4.0 - 5.6 % Comment:None Capillary blood 07/23/2024 1 0:50 AM CDT Reed Coles MD POINT OF CARE TEST ORDERABLES Fi nal Result * (ABNORMAL) Lipid panel (05/28/2024 8:35 AM FURNITURE FINISHER HELPER) Pathologist [facility] [place] SCRIBED Cholesterol, Total 105 105 - <200 EXTERNAL LAB SCRIBED HDL 42(A) 42 - 40 EXTERNAL LAB SCRIBED LDL 45 na - na EXTERNAL LAB SCRIBED Triglycerides 99 99 - <150 EXTERNAL LAB Blood 05/28/2024 8:35 AM FURNITURE FINISHER HELPER Elvis Rojas MD LAB BLOOD ORDERABLES F inal Result EXTERNAL LAB * (ABNORMAL) Comprehensive metabolic panel (05/28/2024 8:35 AM FURNITURE FINISHER HELPER) [facility] SCRIBED Sodium 136 135 - 146 mmol/L EXTERNAL LAB SCRIBED Potassium 5.0 3.5 - 5.3 mmol/L EXTERNAL LAB SCRIBED Urea Nitrogen (BUN) 18 7 - 25 mg/dl EXTERNAL LAB SCRIBED Creatinine 0.96 0.70 - 1.28 mg/dl EXTERNAL LAB SCRIBED Glucose 98 65 - 99 mg/dl EXTERNAL LAB SCRIBED Bilirubin 0.5 0.2 - 1.2 mg/dl EXTERNAL LAB SCRIBED Albumin 1.6 1.0 - 2.5 g/dl EXTERNAL LAB SCRIBED Alkaline Phosphatase 53 35 - 144 Units/L EXTERNAL LAB SCRIBED Alanine Transaminase (ALT) 18 9 - 46 Units/L EXTERNAL LAB SCRIBED Aspartate Transaminase (AST) 18 10 - 35 Units/L EXTERNAL LAB SCRIBED eGFR in NonAfrican Slovak 84(A) 84 - 60 EXTERNAL LAB Blood 05/28/2024 8:35 AM FURNITURE FINISHER HELPER Elvis Rojas MD LAB BLOOD ORDERABLES F inal Result EXTERNAL LAB * (ABNORMAL) DIABETES EYE EXAM (01/10/2024 12:05 PM CDT) us Historical Provider HEALTH MAINTENANCE Edited Result - Final * (ABNORMAL) PSA, total Blood (06/10/2019) SCRIBED PSA, Total 4.59(A) 0.00 - 4.00 EXTERNAL LAB Blood specimen (specimen) 06/10/2019 Historical Provider LAB BLOOD ORDERABLES Edit ed Result - Final EXTERNAL LAB from Last 3 Months or Most Recently Relevant to Health Maintenance Insurance MEDICARE ADVANTAGE [facility] Address: [address] [phone] MEDICARE ADVANTAGE Care Teams Superintendent Transportation Relationship Specialty Start Date End Date Elvis Rojas MD PCP - General 07/21/16
--- OUTSIDE RECORDS SUMMARY | 2024-11-23 08:56 | XMS_ITS | Clinical Summary ---
Author Organization [facility] Address [address] [place] [address] Care Team Providers Care Professor Of Oceanography Name Role Phone Elvis Rojas MD Primary [...] hyperglycemia, with long-term current use of insulin ([facility]) INJECT 60 UNITS SUBCUTANEOUSLY EVERY NIGHT 18 mL 3 03/24/20 24 Active levothyroxine (SYNTHROID) 50 mcg tablet 1 tab po M-F, 2 tabs on the weekends 110 tablet 3 07/24/19 25 Active metFORMIN XR (GLUCOPHAGE XR) 500 mg 24 hr tabletIndications: Type 2 diabetes mellitus with hyperglycemia, with long-term current use of insulin ([facility]) TAKE 2 TABLETS BY MOUTH TWICE DAILY 360 tablet 3 08/14/19 25 Active OneTouch Ultra Test stripIndications:T ype 2 diabetes mellitus with hyperglycemia, with long-term current use of insulin ([facility]),Hypertension , unspecified type USE WITH METER TO TEST BLOOD SUGAR 4 TIMES DAILY 400 strip 3 08/26/19 25 Active alcohol swabs (Alcohol Prep Pads) pads, medicatedIndicatio ns:Type 2 diabetes mellitus with hyperglycemia, with long-term current use of insulin ([facility]) USE TOPICALLY UP TO 8 TIMES DAILY 800 each 1 09/13/19 25 Active pen needle, diabetic (BD Ultra-Fine Mini Pen Needle) 31 gauge x 3/16 needleIndications: Type 2 diabetes mellitus with hyperglycemia, with long-term current use of insulin ([facility]) USE 3 TIMES DAILY 270 each 3 [...] Pravastatin 40mg. Last lipid panel: 06/09/22 LDL=46, JI=695. Will update labs today. Does not mychart. Verified phone #/address to contact re: results. Assessment & Plan (01/02/2023 9:16 AM CDT): Chronic problem. Currently controlled on Pravastatin 40mg. Last lipid panel: 06/09/22 LDL=46, BI=286. Assessment & Plan (06/22/2022 11:40 AM TERMINAL SYSTEM OPERATOR): Chronic, well controlled Low fat Low cholesterol diet Exercise Continue statin therapy with Pravastatin Assessment & Plan (12/20/2021 12:45 PM CDT): Chronic, well controlled Low fat Low cholesterol diet Exercise Continue statin therapy Get report of lipid profile done recently Assessment & Plan (06/09/2021 1:41 PM TERMINAL SYSTEM OPERATOR): Chronic problem. On statin therapy, no changes. Assessment & Plan (06/15/2020 12:47 PM TERMINAL SYSTEM OPERATOR): Goal of treatment , LDL cholesterol less [...] discussed Assessment & Plan (05/29/2017 3:31 PM TERMINAL SYSTEM OPERATOR): Foot care discussed. Hypertension associated with diabetes 02/25/2013 Overview (07/29/2016): HYPERTENSION NOS Assessment & Plan (02/06/2024 9:05 AM CDT): Chronic problem controlled on lisinopril 40mg daily Will update labs today. Does not mychart. Verified phone #/address to contact re: results. Assessment & Plan (01/02/2023 9:17 AM CDT): Chronic problem controlled on lisinopril 40mg daily Assessment & Plan (06/22/2022 11:39 AM TERMINAL SYSTEM OPERATOR): Chronic, well controlled Importance of low salt diet and exercise were discussed Continue current meds including Lisinopril Assessment & Plan (12/20/2021 12:44 PM CDT): Chronic, well controlled Importance of low salt diet and exercise were discussed Continue current meds will get reports of labs done with Dr. Bob leiva Assessment & Plan (06/09/2021 1:41 PM TERMINAL SYSTEM OPERATOR): Controlled on current medications, no changes. Assessment & Plan (12/23/2020 11:19 AM CDT): Goal blood pressure is less than 140/85 Low salt diet was discussed andd recommended The importance of daily aerobic exercise was also emphasized. Continue current meds, including SERENA-I or ARB, e.g. Check microalbumin Assessment & Plan (06/15/2020 12:46 PM TERMINAL SYSTEM OPERATOR): Goal blood pressure is less than 140/85 [...] ARB Assessment & Plan (05/29/2017 3:37 PM TERMINAL SYSTEM OPERATOR): Goal blood pressure is less than 140/85 [...] DM eye exam spring 2023 at [facility]. Letter sent to get copy of report. [...] infection. Assessment & Plan (06/22/2022 11:39 AM TERMINAL SYSTEM OPERATOR): Hba1c was Lab Results Component Value Date [...] active Assessment & Plan (06/09/2021 1:56 PM TERMINAL SYSTEM OPERATOR): Chronic problem, A1c stable but some variability [...] weekly Assessment & Plan (06/15/2020 12:47 PM TERMINAL SYSTEM OPERATOR): Hba1c was Lab Results Component Value Date [...] discussed. Assessment & Plan (05/29/2017 3:31 PM TERMINAL SYSTEM OPERATOR): Hba1c was 7.4 today, indicating sub-optimal DM [...] HYPERCHOLESTEROLEM Assessment & Plan (05/29/2017 3:38 PM TERMINAL SYSTEM OPERATOR): Goal of treatment , LDL cholesterol less [...] statin therapy Low cholesterol diet, exercise advised. Surgical History Surgery Date Site/Laterality Comments CHOLECYSTECTOMY Cholecystectomy HERNIA REPAIR 2013 Hernia repair Medical History Medical History Date Comments Type 2 diabetes mellitus Diabete s type 2 Hx Other Medical Not Claustropho bic; Comments: [facility] 12/30/2013 - Family History Medical History Relation Name Comments Diabetes type II Other Family hist ory of Diabetes -Type 2; Relation Name Status Comments Other Social History Tobacco Use Types Packs/Day Years [...] on file Legal Sex Male 11:59 PM TERMINAL SYSTEM OPERATOR Gender Identity Not on file Sexual Orientation Not on file Obstetrics History Last Filed Vital Signs Vital Sign Reading [...] 07/23/2024 10:48 AM CDT Plan of Treatment Health Maintenance Due Date Last Done Comments Colon Cancer Screening-Colonoscopy 1950 Fall Risk Assessment 1950 Hepatitis C Screening 1950 DTaP/Tdap/Td Vaccine (1 - Tdap) 1963 Hepatitis B Screening 1970 Abdominal Aortic Aneurysm (A AA) Screen 2017 Well Visit 65+ 2017 Depression Screening 12/20/2022 12/20/2021, 06/09/2021, 06/15/2020, Additional history exists Influenza Vaccine (#1) 2024 , 01/15/2023, 01/28/2020 Dilated Eye Exam 01/09/2025 01/10/2024, , 10/26/2022, Additional history exists Hemoglobin A1C 01/22/2025 07/23/2024, 02/0 08/2024, 02/06/2024, Additional history exists Foot Exam 02/05/2025 02/06/2024, 03/0 05/2022, 12/23/2020, Additional history exists Lipid Panel 05/28/2025 05/28/2024, 01/21, 06/09/2022, Additional history exists eGFR 05/28/2025 05/28/2024, 01/21, 06/09/2022, Additional history exists Albumin Creatinine Ratio, Urine 07/23/2025 07/23/2024, 05/28/2024, 02/06/2024, Additional history exists Prostate Cancer Screening-PSA Discontinued 06/10/2019 Pneumococcal vaccine 65+ Completed 12/08/2021, 0705/2020 Zoster Vaccine Completed 05/14/2022, 04/13/2022 Procedures Procedure Name Priority Date/Time Associated Diagnosis Comments ALBUMIN CREATININE RATIO, URINE Routine 07/23/2024 11:07 AM CDT Hypertension associated with diabetes (HCC) POCT HEMOGLOBIN A1C Routine 07/23/2024 1 0:50 AM CDT Type 2 diabetes mellitus with hyperglycemia, with long-term current use of insulin (HCC) LIPID PANEL Routine 05/28/2024 8:35 AM TERMINAL SYSTEM OPERATOR COMPREHENSIVE METABOLIC PANEL Routine 05/28/2024 8:35 AM TERMINAL SYSTEM OPERATOR HM DIABETES EYE EXAM Routine 01/10/2024 12:05 [...] URINE ORDERABLES Final Resul t [facility] [id number] [place] [address] * (ABNORMAL) POCT hemoglobin A1c (07/23/2024 10:50 AM CDT) Hemoglobin A1C, POC 6.4 4.0 - 5.6 % Comment:None Capillary blood 07/23/2024 1 0:50 AM CDT Reed Coles MD POINT OF CARE TEST ORDERABLES Fi nal Result * (ABNORMAL) Lipid panel (05/28/2024 8:35 AM TERMINAL SYSTEM OPERATOR) SCRIBED Cholesterol, Total 105 105 - <200 EXTERNAL LAB SCRIBED HDL 42(A) 42 - 40 EXTERNAL LAB SCRIBED LDL 45 na - na EXTERNAL LAB SCRIBED Triglycerides 99 99 - <150 EXTERNAL LAB Blood 05/28/2024 8:35 AM TERMINAL SYSTEM OPERATOR Elvis Rojas MD LAB BLOOD ORDERABLES F inal Result Performing Organization Address City/[facility]/ZIP Co de Phone Number EXTERNAL LAB * (ABNORMAL) Comprehensive metabolic panel (05/28/2024 8:35 AM TERMINAL SYSTEM OPERATOR) SCRIBED Sodium 136 135 - 146 mmol/L [...] Units/L EXTERNAL LAB SCRIBED eGFR in NonAfrican Martiniquais 84(A) 84 - 60 EXTERNAL LAB Blood 05/28/2024 8:35 AM TERMINAL SYSTEM OPERATOR Elvis Rojas MD LAB BLOOD ORDERABLES F inal Result EXTERNAL LAB * (ABNORMAL) DIABETES EYE EXAM (01/10/2024 12:05 PM CDT) us Historical Provider HEALTH MAINTENANCE Edited Result - Final * (ABNORMAL) PSA, total Blood (06/10/2019) SCRIBED PSA, Total 4.59(A) 0.00 - 4.00 EXTERNAL LAB Blood specimen (specimen) 06/10/2019 us Historical Provider LAB BLOOD ORDERABLES Edit ed Result - Final EXTERNAL LAB from Last 3 Months or Most Recently Relevant to Health Maintenance Insurance MEDICARE ADVANTAGE MEDICARE ADVANTAGE Care Teams Professor Of Oceanography Relationship Specialty Start Date End Date Elvis Rojas MD PCP - General 07/21/16
[2024-11-23 09:14] VITALS: BP 141/79; PULSE 74; RESP 18; TEMP 36.4; O2SAT 98
--- NOTE | 2024-11-23 09:18 | ED_ITS ---
HPI - General Adult General Chief complaint: Abdominal Pain Stated complaint: abd pain Time Seen by Provider: 11/23/24 09:01 History of Present Illness HPI narrative: 74-year-old male with history of diverticulitis, umbilical hernia repair, PVCs, hyperlipidemia, hypertension, type 2 diabetes, hypothyroidism presents emergency department for evaluation for lower abdominal pain. Patient reports he went to dinner on Sunday and had patient beer and states he has been burping a them up since then. Patient does describe bilateral low abdominal pain. Patient did have a bowel movement this is not changed discomfort. Patient states he does have a prior history of diverticulitis but is not feel that this is similar. Patient does have prior history of bili car hernia repair and cholecystectomy Related Data Home Medications ?Medication ?Instructions ?Recorded ?Confirmed ?Last Taken ?Type allopurinol 300 mg tablet 300 mg PO DAILY 09/08/21 11/23/24 10/12/21 History dulaglutide 0.75 mg/0.5 mL 0 mg subcut WEEKLY 09/08/21 11/23/24 10/12/21 History subcutaneous pen injector (Trulicity) insulin lispro 200 unit/mL (3 mL) 10 - 12 unit subcut BID 09/08/21 11/23/24 10/11/21 History subcutaneous pen (Humalog KwikPen U-200 Insulin) levothyroxine 50 mcg tablet 50 mcg PO DAILY 09/08/21 11/23/24 10/12/21 History lisinopril 40 mg tablet 40 mg PO DAILY 09/08/21 11/23/24 10/12/21 History metformin 500 mg tablet,extended 500 mg PO DAILY 09/08/21 11/23/24 10/12/21 History release 24 hr pravastatin 40 mg tablet 40 mg PO DAILY 09/08/21 11/23/24 10/12/21 22:00 History Allergies Allergy/AdvReac Type Severity Reaction Status Date / Time cephalexin AdvReac Mild Rash Verified 11/23/24 09:25 Review of Systems 2 Review of Systems: All systems reviewed & are unremarkable except as noted in HPI and below PMFSH Past Medical History Medical History Diabetes type 2, controlled Gout Hyperlipidemia Hypertension Hypothyroidism Surgical History Surgical History History of cholecystectomy Social History Social History Smoking status: Former smoker Tobacco type: cigars Alcohol intake: never Substance use: never Substance use type: does not use Living arrangements: with family Spiritual care concerns: No Exam 2 Narrative: APPEARANCE: Well appearing, no pain, no distress, well-nourished. HEAD: normocephalic, atraumatic. EYES: PERRLA/EOMI, conjunctivae clear. NOSE: Normal no drainage EARS:TMS clear with good light reflex. THROAT: Pharynx clear, no exudate. NECK: Supple. No adenopathy, no masses. RESPIRATORY: Airway patent, respirations nonlabored. Clear to auscultation bilaterally, no rales, rhonchi, wheezing. CARDIOVASCULAR: Regular rate and rhythm without murmurs rubs or gallops. ABDOMINAL: Lower abdominal tenderness to palpation MUSCULOSKELETAL: Moves all extremities. Strength/ROM intact, No edema, No calf tenderness. NEURO: Alert. Cranial nerves II through XII intact. Good gait. Good coordination SKIN: Warm, dry. Normal Color Course Vital Signs Vital signs: Vital Signs Temperature 97.6 F 11/23/24 09:14 Pulse Rate 74 11/23/24 09:14 Respiratory Rate 18 11/23/24 09:14 Blood Pressure 141/79 H 11/23/24 09:14 Pulse Oximetry 98 11/23/24 09:14 Oxygen Delivery Room Air 11/23/24 09:14 Temperature 97.6 F 11/23/24 09:14 Pulse Rate 72 11/23/24 12:03 Respiratory Rate 16 11/23/24 12:03 Blood Pressure 120/72 11/23/24 12:03 Pulse Oximetry 98 11/23/24 12:03 Oxygen Delivery Room Air 11/23/24 09:14 Medical Decision Making [facility] Narrative Medical decision making narrative: 74-year-old male presents to the emergency department for evaluation of increased burping with associated lower abdominal pain. Patient is currently afebrile with no leukocytosis hemoglobin of 13.5. Patient has no acute abnormalities on his CMP UA was negative for infection. Patient's CT showed no acute intra-abdominal pathology specifically no diverticulitis and no appendicitis. Patient did feel improved with rehydration. Patient was advised to follow a clear liquid diet for the next 1-3 days. Patient will be provided Zofran for nausea control. Patient will have close follow-up with his primary care physician as outpatient. Differential Diagnosis Differential Diagnosis: Colitis, diverticulitis, appendicitis, urinary tract infection Vital Signs Vital Signs: Vital Signs Temperature 97.6 F 11/23/24 09:14 Pulse Rate 74 11/23/24 09:14 Respiratory Rate 18 11/23/24 09:14 Blood Pressure 141/79 H 11/23/24 09:14 Pulse Oximetry 98 11/23/24 09:14 Oxygen Delivery Room Air 11/23/24 09:14 Temperature 97.6 F 11/23/24 09:14 Pulse Rate 72 11/23/24 12:03 Respiratory Rate 16 11/23/24 12:03 Blood Pressure 120/72 11/23/24 12:03 Pulse Oximetry 98 11/23/24 12:03 Oxygen Delivery Room Air 11/23/24 09:14 Lab Data Lab results reviewed: Yes I reviewed the patient's lab results. 11/23/24 09:26 11/23/24 09:26 Labs: Lab Results 11/23/24 Range/Units 09:26 WBC 4.7 (4.5-10.0) K/mm3 RBC 4.42 L (4.6-6.20) M/mm3 Hgb 13.5 L (14.0-18.0) g/dL Hct 39.7 L (42.0-52.0) % MCV 89.8 (80-100) fl MCH 30.5 (26-34) pg MCHC 34.0 (32-36) g/dl RDW 14.9 H (11.5-14.5) % Plt Count 185 (150-375) k/mm3 MPV 10.3 (7.4-10.4) fl Immature Gran % (Auto) 0.4 (0-0.5) % Neut % (Auto) 65.9 (45.5-73.1) % Lymph % (Auto) 20.6 (18.3-44.2) % [place] % (Auto) 8.8 H (2.6-8.5) % Eos % (Auto) 3.4 (0-4.4) % Baso % (Auto) 0.9 (0.2-1.2) % Lymph # (Auto) 0.96 (0.9-3.2) K/mm3 [place] # (Auto) 0.4 (0.1-0.6) K/mm3 Eos # (Auto) 0.2 (0-0.3) K/mm3 Baso # (Auto) 0.0 (0.0-0.1) K/mm3 Abs Immat Gran (auto) 0.02 (0.00-0.031) K/mm3 Absolute Neuts (auto) 3.1 (1.3-6.7) K/mm3 Absolute Nucleated RBC 0.000 (0.0-0.012) K/mm3 Nucleated RBC % 0.0 (0.0-0.2) % Sodium 129 L (137-145) mmol/L Potassium 4.9 (3.4-5.0) mmol/L Chloride 101 (98-107) mmol/L Carbon Dioxide 21 L (22-30) mmol/L Anion Gap 7 (4-12) mmol/L BUN 15 (9-20) mg/dL Creatinine 0.72 (0.7-1.3) mg/dL Estim Creat Clear Calc 119 ml/min Estimated GFR > 60 (59 - ) Glucose 161 H (65-110) mg/dL Calcium 9.5 (8.4-10.2) mg/dL Total Bilirubin 0.9 (0.2-1.3) mg/dL AST 30 (17-59) U/L ALT 20 (6-50) U/L Alkaline Phosphatase 65 (38-126) U/L Total Protein 6.9 (6.3-8.2) g/dL Albumin 4.1 (3.5-5.1) g/dL Lipase 43 (23-300) U/L Urine Color Yellow (Yellow) Urine Appearance Clear (Clear) Urine pH 6.0 (5.0-9.0) Ur Specific [place] 1.013 (1.001-1.035) Urine Protein Negative (Negative) mg/dL Urine Glucose (UA) Negative (Negative) mg/dL Urine Ketones Negative (Negative) mg/dL Ur Blood (Man) Negative (Negative) Urine Nitrate Negative (Negative) Urine Bilirubin Negative (Negative) Urine Urobilinogen 0.2 (<2.0) mg/dL Leukocyte Esterase Rfl Negative (Negative) YASMANY/UL Imaging Data Radiologist's impression: Impressions Abdomen/Pelvis CT 11/23/24 10:40 IMPRESSION: 1. No acute intra-abdominal/pelvic process. Specifically the appendix is normal. 2. Multiple dystrophic parenchymal calcifications in the pancreas consistent with sequela of chronic pancreatitis.. 3. A couple bladder diverticula likely related to chronic outlet obstruction from the enlarged prostate. 4. Small fat-containing left inguinal hernia. ADDENDUM: 11/23/24 1101 ADDENDUM: Impression should include 5. Couple small hypodense hepatic nodules which given interval stability since 01/24/2024 are most likely benign with differential including hemangioma or focal nodular hyperplasia. Discharge Plan Discharge Clinical Impression: Abdominal pain Patient Disposition: Home Condition: Stable Instructions: Antibiotic Form, Clear Liquid Diet (ED), Abdominal Pain (ED) Additional Instructions: Clear liquid diet for the next 1-3 days. Zofran as needed for nausea control. Have close follow-up with your primary care physician. If you have any worsening symptoms then please call or return to the emergency department. Patient Language: Bulgarian Prescriptions: New ondansetron 4 mg tablet,disintegrating 4 mg PO Q8H PRN (Reason: nausea and vomiting) Qty: 14 0RF No Action pravastatin 40 mg tablet 40 mg PO DAILY levothyroxine 50 mcg tablet 50 mcg PO DAILY allopurinol 300 mg tablet 300 mg PO DAILY lisinopril 40 mg tablet 40 mg PO DAILY metformin 500 mg tablet extended release 24 hr 500 mg PO DAILY Trulicity 0.75 mg/0.5 mL pen injector 0 mg SUBCUT WEEKLY Patient Comments: [facility] Humalog KwikPen Insulin 200 unit/mL (3 mL) insulin pen 10 - 12 unit SUBCUT BID Follow-up/Referrals: Bob,Elvis Randolph MD [Primary Care Provider] -
--- OUTSIDE RECORDS SUMMARY | 2024-11-23 09:25 | XMS_ITS | Clinical Summary ---
Author Organization [facility] 8 [facility] Address [address] [place] [address] Care Team Providers Care Park Ranger Name Role Phone Elvis Rojas MD Primary [...] hyperglycemia, with long-term current use of insulin ([facility]) INJECT 60 UNITS SUBCUTANEOUSLY EVERY NIGHT 18 mL 3 03/24/20 24 Active levothyroxine (SYNTHROID) 50 mcg tablet 1 tab po M-F, 2 tabs on the weekends 110 tablet 3 07/24/19 25 Active metFORMIN XR (GLUCOPHAGE XR) 500 mg 24 hr tabletIndications: Type 2 diabetes mellitus with hyperglycemia, with long-term current use of insulin ([facility]) TAKE 2 TABLETS BY MOUTH TWICE DAILY 360 tablet 3 08/14/19 25 Active OneTouch Ultra Test stripIndications:T ype 2 diabetes mellitus with hyperglycemia, with long-term current use of insulin ([facility]),Hypertension , unspecified type USE WITH METER TO TEST BLOOD SUGAR 4 TIMES DAILY 400 strip 3 08/26/19 25 Active alcohol swabs (Alcohol Prep Pads) pads, medicatedIndicatio ns:Type 2 diabetes mellitus with hyperglycemia, with long-term current use of insulin ([facility]) USE TOPICALLY UP TO 8 TIMES DAILY 800 each 1 09/13/19 25 Active pen needle, diabetic (BD Ultra-Fine Mini Pen Needle) 31 gauge x 3/16 needleIndications: Type 2 diabetes mellitus with hyperglycemia, with long-term current use of insulin ([facility]) USE 3 TIMES DAILY 270 each 3 [...] Pravastatin 40mg. Last lipid panel: 06/09/22 LDL=46, ZX=140. Will update labs today. Does not mychart. Verified phone #/address to contact re: results. Assessment & Plan (01/02/2023 9:16 AM CDT): Chronic problem. Currently controlled on Pravastatin 40mg. Last lipid panel: 06/09/22 LDL=46, PK=038. Assessment & Plan (06/22/2022 11:40 AM BORDER PATROL AGENT): Chronic, well controlled Low fat Low cholesterol diet Exercise Continue statin therapy with Pravastatin Assessment & Plan (12/20/2021 12:45 PM CDT): Chronic, well controlled Low fat Low cholesterol diet Exercise Continue statin therapy Get report of lipid profile done recently Assessment & Plan (06/09/2021 1:41 PM BORDER PATROL AGENT): Chronic problem. On statin therapy, no changes. Assessment & Plan (06/15/2020 12:47 PM BORDER PATROL AGENT): Goal of treatment , LDL cholesterol less [...] discussed Assessment & Plan (05/29/2017 3:31 PM BORDER PATROL AGENT): Foot care discussed. Hypertension associated with diabetes 02/25/2013 Overview (07/29/2016): HYPERTENSION NOS Assessment & Plan (02/06/2024 9:05 AM CDT): Chronic problem controlled on lisinopril 40mg daily Will update labs today. Does not mychart. Verified phone #/address to contact re: results. Assessment & Plan (01/02/2023 9:17 AM CDT): Chronic problem controlled on lisinopril 40mg daily Assessment & Plan (06/22/2022 11:39 AM BORDER PATROL AGENT): Chronic, well controlled Importance of low salt diet and exercise were discussed Continue current meds including Lisinopril Assessment & Plan (12/20/2021 12:44 PM CDT): Chronic, well controlled Importance of low salt diet and exercise were discussed Continue current meds will get reports of labs done with Dr. Bob leiva Assessment & Plan (06/09/2021 1:41 PM BORDER PATROL AGENT): Controlled on current medications, no changes. Assessment & Plan (12/23/2020 11:19 AM CDT): Goal blood pressure is less than 140/85 Low salt diet was discussed andd recommended The importance of daily aerobic exercise was also emphasized. Continue current meds, including SERENA-I or ARB, e.g. Check microalbumin Assessment & Plan (06/15/2020 12:46 PM BORDER PATROL AGENT): Goal blood pressure is less than 140/85 [...] ARB Assessment & Plan (05/29/2017 3:37 PM BORDER PATROL AGENT): Goal blood pressure is less than 140/85 [...] DM eye exam spring 2023 at [facility]. Letter sent to get copy of report. [...] infection. Assessment & Plan (06/22/2022 11:39 AM BORDER PATROL AGENT): Hba1c was Lab Results Component Value Date [...] and he thinks he can pay prasad mtichell also advised the patient on taking a few less units of Humalog in the morning, when he is going to be more active Assessment & Plan (06/09/2021 1:56 PM BORDER PATROL AGENT): Chronic problem, A1c stable but some variability [...] weekly Assessment & Plan (06/15/2020 12:47 PM BORDER PATROL AGENT): Hba1c was Lab Results Component Value Date [...] discussed. Assessment & Plan (05/29/2017 3:31 PM BORDER PATROL AGENT): Hba1c was 7.4 today, indicating sub-optimal DM [...] HYPERCHOLESTEROLEM Assessment & Plan (05/29/2017 3:38 PM BORDER PATROL AGENT): Goal of treatment , LDL cholesterol less [...] Hx Other Medical Not Claustropho bic; Comments: [facility] 12/30/2013 - Family History Medical History Relation [...] on file Legal Sex Male 11:59 PM BORDER PATROL AGENT Gender Identity Not on file Sexual Orientation [...] (HCC) LIPID PANEL Routine 05/28/2024 8:35 AM BORDER PATROL AGENT COMPREHENSIVE METABOLIC PANEL Routine 05/28/2024 8:35 AM BORDER PATROL AGENT HM DIABETES EYE EXAM Routine 01/10/2024 12:05 [...] URINE ORDERABLES Final Resul t [facility] [id number] [place] [address] * (ABNORMAL) POCT hemoglobin A1c (07/23/2024 10:50 AM CDT) Hemoglobin A1C, POC 6.4 4.0 - 5.6 % Comment:None Capillary blood 07/23/2024 1 0:50 AM CDT Reed Coles MD POINT OF CARE TEST ORDERABLES Fi nal Result * (ABNORMAL) Lipid panel (05/28/2024 8:35 AM BORDER PATROL AGENT) SCRIBED Cholesterol, Total 105 105 - <200 EXTERNAL LAB SCRIBED HDL 42(A) 42 - 40 EXTERNAL LAB SCRIBED LDL 45 na - na EXTERNAL LAB SCRIBED Triglycerides 99 99 - <150 EXTERNAL LAB Blood 05/28/2024 8:35 AM BORDER PATROL AGENT Elvis Rojas MD LAB BLOOD ORDERABLES F inal Result Performing Organization Address City/[facility]/ZIP Co de Phone Number EXTERNAL LAB * (ABNORMAL) Comprehensive metabolic panel (05/28/2024 8:35 AM BORDER PATROL AGENT) SCRIBED Sodium 136 135 - 146 mmol/L [...] Units/L EXTERNAL LAB SCRIBED eGFR in NonAfrican Salvadorean 84(A) 84 - 60 EXTERNAL LAB Blood 05/28/2024 8:35 AM BORDER PATROL AGENT Elvis Rojas MD LAB BLOOD ORDERABLES F [...] to Health Maintenance Insurance MEDICARE ADVANTAGE [facility] MEDIC[facility] Address: [address] [address] MEDICARE ADVANTAGE [facility] MEDICARE Address: [facility] [address] [place] [address] Care Teams Park Ranger Relationship Specialty Start Date End Date Elvis Rojas MD PCP - General 07/21/16
--- OUTSIDE RECORDS SUMMARY | 2024-11-23 09:25 | XMS_ITS | Referral Summary ---
Author Organization [facility] Address [address] [place] [address] Care Team Providers Care Android Developer Name Role Phone Elvis Rojas MD Primary [...] use of insulin ([facility]) INJECT 60 UNITS SUBCUTANEOUSLY EVERY NIGHT 18 mL 3 03/24/20 24 Active levothyroxine (SYNTHROID) 50 mcg tablet 1 tab po M-F, 2 tabs on the weekends 110 tablet 3 07/24/19 25 Active metFORMIN XR (GLUCOPHAGE XR) 500 mg 24 hr tabletIndications: Type 2 diabetes mellitus with hyperglycemia, with long-term current use of insulin ([facility]) TAKE 2 TABLETS BY MOUTH TWICE DAILY 360 tablet 3 08/14/19 25 Active OneTouch Ultra Test stripIndications:T ype 2 diabetes mellitus with hyperglycemia, with long-term current use of insulin ([facility]),Hypertension , unspecified type USE WITH METER TO TEST BLOOD SUGAR 4 TIMES DAILY 400 strip 3 08/26/19 25 Active alcohol swabs (Alcohol Prep Pads) pads, medicatedIndicatio ns:Type 2 diabetes mellitus with hyperglycemia, with long-term current use of insulin ([facility]) USE TOPICALLY UP TO 8 TIMES DAILY 800 each 1 09/13/19 25 Active pen needle, diabetic (BD Ultra-Fine Mini Pen Needle) 31 gauge x 3/16 needleIndications: Type 2 diabetes mellitus with hyperglycemia, with long-term current use of insulin ([facility]) USE 3 TIMES DAILY 270 each 3 [...] Pravastatin 40mg. Last lipid panel: 06/09/22 LDL=46, PN=153. Will update labs today. Does not mychart. Verified phone #/address to contact re: results. Assessment & Plan (01/02/2023 9:16 AM CDT): Chronic problem. Currently controlled on Pravastatin 40mg. Last lipid panel: 06/09/22 LDL=46, AN=691. Assessment & Plan (06/22/2022 11:40 AM SAFETY LEAD): Chronic, well controlled Low fat Low cholesterol diet Exercise Continue statin therapy with Pravastatin Assessment & Plan (12/20/2021 12:45 PM CDT): Chronic, well controlled Low fat Low cholesterol diet Exercise Continue statin therapy Get report of lipid profile done recently Assessment & Plan (06/09/2021 1:41 PM SAFETY LEAD): Chronic problem. On statin therapy, no changes. Assessment & Plan (06/15/2020 12:47 PM SAFETY LEAD): Goal of treatment , LDL cholesterol less [...] discussed Assessment & Plan (05/29/2017 3:31 PM SAFETY LEAD): Foot care discussed. Hypertension associated with diabetes 02/25/2013 Overview (07/29/2016): HYPERTENSION NOS Assessment & Plan (02/06/2024 9:05 AM CDT): Chronic problem controlled on lisinopril 40mg daily Will update labs today. Does not mychart. Verified phone #/address to contact re: results. Assessment & Plan (01/02/2023 9:17 AM CDT): Chronic problem controlled on lisinopril 40mg daily Assessment & Plan (06/22/2022 11:39 AM SAFETY LEAD): Chronic, well controlled Importance of low salt diet and exercise were discussed Continue current meds including Lisinopril Assessment & Plan (12/20/2021 12:44 PM CDT): Chronic, well controlled Importance of low salt diet and exercise were discussed Continue current meds will get reports of labs done with Dr. Bob leiva Assessment & Plan (06/09/2021 1:41 PM SAFETY LEAD): Controlled on current medications, no changes. Assessment & Plan (12/23/2020 11:19 AM CDT): Goal blood pressure is less than 140/85 Low salt diet was discussed andd recommended The importance of daily aerobic exercise was also emphasized. Continue current meds, including SERENA-I or ARB, e.g. Check microalbumin Assessment & Plan (06/15/2020 12:46 PM SAFETY LEAD): Goal blood pressure is less than 140/85 [...] ARB Assessment & Plan (05/29/2017 3:37 PM SAFETY LEAD): Goal blood pressure is less than 140/85 [...] DM eye exam spring 2023 at [facility]. Letter sent to get copy of report. [...] infection. Assessment & Plan (06/22/2022 11:39 AM SAFETY LEAD): Hba1c was Lab Results Component Value Date [...] active Assessment & Plan (06/09/2021 1:56 PM SAFETY LEAD): Chronic problem, A1c stable but some variability [...] weekly Assessment & Plan (06/15/2020 12:47 PM SAFETY LEAD): Hba1c was Lab Results Component Value Date [...] discussed. Assessment & Plan (05/29/2017 3:31 PM SAFETY LEAD): Hba1c was 7.4 today, indicating sub-optimal DM [...] HYPERCHOLESTEROLEM Assessment & Plan (05/29/2017 3:38 PM SAFETY LEAD): Goal of treatment , LDL cholesterol less [...] on file Legal Sex Male 11:59 PM SAFETY LEAD Gender Identity Not on file Sexual Orientation [...] (HCC) LIPID PANEL Routine 05/28/2024 8:35 AM SAFETY LEAD COMPREHENSIVE METABOLIC PANEL Routine 05/28/2024 8:35 AM SAFETY LEAD HM DIABETES EYE EXAM Routine 01/10/2024 12:05 [...] URINE ORDERABLES Final Resul t [facility] [id number] Department [place] [address] * (ABNORMAL) POCT hemoglobin A1c (07/23/2024 10:50 AM CDT) Pathologist [facility] Hemoglobin A1C, POC 6.4 4.0 - 5.6 % Comment:None Capillary blood 07/23/2024 1 0:50 AM CDT Reed Coles MD POINT OF CARE TEST ORDERABLES Fi nal Result * (ABNORMAL) Lipid panel (05/28/2024 8:35 AM SAFETY LEAD) Pathologist [facility] SCRIBED Cholesterol, Total 105 105 - <200 EXTERNAL LAB SCRIBED HDL 42(A) 42 - 40 EXTERNAL LAB SCRIBED LDL 45 na - na EXTERNAL LAB SCRIBED Triglycerides 99 99 - <150 EXTERNAL LAB Blood 05/28/2024 8:35 AM SAFETY LEAD Elvis Rojas MD LAB BLOOD ORDERABLES F inal Result EXTERNAL LAB * (ABNORMAL) Comprehensive metabolic panel (05/28/2024 8:35 AM SAFETY LEAD) [facility] SCRIBED Sodium 136 135 - 146 mmol/L [...] Units/L EXTERNAL LAB SCRIBED eGFR in NonAfrican Sw[place] 84(A) 84 - 60 EXTERNAL LAB Blood 05/28/2024 8:35 AM SAFETY LEAD Elvis Rojas MD LAB BLOOD ORDERABLES F [...] Insurance MEDICARE ADVANTAGE MEDICARE ADVANTAGE Care Teams Android Developer Relationship Specialty Start Date End Date Elvis Rojas MD PCP - General 07/21/16
[2024-11-23] MEDS: LACTATED RINGERS 1,000 ML 999 ML IV CONT (09:32)
[2024-11-23 09:33] LABS: Add Urine Microscopic? NO; Appearance Urine Clear (Clear); Glucose Urine UA Negative (Negative); Leukocyte Esterase Ur Negative LEU/UL (Negative); Nitrate Urine Negative (Negative); Specific Grav Ur 1.013 (1.001-1.035)
[2024-11-23] MEDS: ONDANSETRON INJ 4 MG/2 ML VIAL IV PUSH (09:33)
[2024-11-23 09:35] LABS: Hematocrit 39.7 % (42.0-52.0); Hemoglobin 13.5 g/dL (14.0-18.0); Immature Granulocyte Percent A 0.4 % (0-0.5); Lymphocytes Absolute Auto 0.96 K/mm3 (0.9-3.2); Mean Corpuscular HGB Conc 34.0 g/dl (32-36); Mean Corpuscular Hemoglobin 30.5 pg (26-34); Mean Corpuscular Volume 89.8 fl (80-100); Nucleated Red Blood Cells Absolute Auto 0.000 K/mm3 (0.0-0.012); Nucleated Red Blood Cells Perc 0.0 % (0.0-0.2); Platelet Count Result 185 k/mm3 (150-375); Red Blood Count 4.42 M/mm3 (4.6-6.20); White Blood Count 4.7 K/mm3 (4.5-10.0)
[2024-11-23 09:53] LABS: Alanine Aminotransferase 20 U/L (6-50); Albumin Level 4.1 g/dL (3.5-5.1); Alkaline Phosphatase 65 U/L (38-126); Anion Gap 7 mmol/L (4-12); Aspartate Amino Transferase 30 U/L (17-59); Bilirubin,Total 0.9 mg/dL (0.2-1.3); Blood Urea Nitrogen 15 mg/dL (9-20); Calcium 9.5 mg/dL (8.4-10.2); Carbon Dioxide 21 mmol/L (22-30); Chloride 101 mmol/L (98-107); Estimated CRCL calculation 119 ml/min; Estimated Glomerular Filt Rate > 60; Glucose 161 mg/dL (65-110); Lipase 43 U/L (23-300); Potassium 4.9 mmol/L (3.4-5.0); Sodium 129 mmol/L (137-145); Total Protein 6.9 g/dL (6.3-8.2)
[2024-11-23 12:03] VITALS: BP 120/72; PULSE 72; RESP 16; O2SAT 98
== END 2024-11-23 12:05 | disposition home or self-care (01) ==
PROVIDERS: Emergency Provider Emergency Medicine; PCP Internal Medicine
DX: R10.30 Lower abdominal pain, unspecified (principal); I10 Essential (primary) hypertension; E78.5 Hyperlipidemia, unspecified; E11.9 Type 2 diabetes mellitus without complications; E03.9 Hypothyroidism, unspecified; Z87.891 Personal history of nicotine dependence; Z90.49 Acquired absence of other specified parts of digestive tract; K40.90 Unilateral inguinal hernia, without obstruction or gangrene, not specified as recurrent; K76.9 Liver disease, unspecified; N32.3 Diverticulum of bladder; N40.1 Benign prostatic hyperplasia with lower urinary tract symptoms; N13.8 Other obstructive and reflux uropathy; Z79.899 Other long term (current) drug therapy; Z79.84 Long term (current) use of oral hypoglycemic drugs; Z79.85 Long-term (current) use of injectable non-insulin antidiabetic drugs; Z79.4 Long term (current) use of insulin
CPT/HCPCS: 36415; 74177; 80053; 81003; 83690; 85025; 96361; 96374; 99284; J2405; J7120; Q9967

== ENCOUNTER 2025-03-07 17:48 | Emergency (ER) | payer OTHER, MEDICARE, SELFPAY ==
[2025-03-07] VITALS (10 sets, daily range): BP systolic 136–163; BP diastolic 70–85; PULSE 69–80; RESP 11–28; TEMP 36.4; O2SAT 92–98
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
--- NOTE | 2025-03-07 17:54 | ECG_ITS ---
Test Date: 2025-03-07 18:02:39 Measurements Intervals [place] Rate: 75 P: -27 NM: 166 QRS: -25 QRSD: 99 T: 19 QT: 366 QTc: 409 Interpretive Statements SINUS RHYTHM WITH FREQUENT VENTRICULAR PREMATURE COMPLEXES LEFTWARD AXIS Electronically Signed On 03-08-2025 09:56:45 [employer]S HAND[employer] by Amrik Hwang D.O
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
--- NOTE | 2025-03-07 19:38 | PC.NURSE ---
Report received from SHARRON Flores. Assumed care of patient at this time. Patient waiting for transport to [facility] ER.
[2025-03-07] MEDS: SODIUM CHLORIDE 0.9% IV 1,000 ML 150 ML IV CONT (19:46)
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
[2025-03-07] MEDS: ACETAMINOPHEN 500 MG TABLET 1000 MG PO (20:40)
== END 2025-03-07 20:41 | disposition short-term general hospital (02) ==
LOC: ANHED 19:16
PROVIDERS: Emergency Provider Emergency Medicine; PCP Internal Medicine
DX: S29.9XXA Unspecified injury of thorax, initial encounter (principal); E03.9 Hypothyroidism, unspecified; E11.9 Type 2 diabetes mellitus without complications; E78.5 Hyperlipidemia, unspecified; I10 Essential (primary) hypertension; M10.9 Gout, unspecified; Z87.891 Personal history of nicotine dependence; Z90.49 Acquired absence of other specified parts of digestive tract; Z79.4 Long term (current) use of insulin; Z79.899 Other long term (current) drug therapy; Z79.85 Long-term (current) use of injectable non-insulin antidiabetic drugs; I49.3 Ventricular premature depolarization; V43.52XA Car driver injured in collision with other type car in traffic accident, initial encounter
CPT/HCPCS: 71045; 82948; 93005; 96360; 99285; A9270; J7030